=== PATIENT | female | born 1995 | race African-American/Black ===

== ENCOUNTER 2017-09-03 21:09 | Emergency (ER) | payer OTHER ==
[~2017-09-03] VITALS: Ht 170.2 cm; Wt 80.0 kg
[2017-09-03 21:10] VITALS: BP 122/59; PULSE 89; RESP 16; TEMP 98.6; O2SAT 99
[2017-09-03] MEDS ORDERED: MIRTA15 PO (21:49)
[2017-09-03] MEDS ORDERED: TRIAM.1%T TOPICAL (21:52)
[2017-09-03] MEDS ORDERED: NYST10007 TOPICAL (21:52)
[2017-09-03] MEDS ORDERED: CLAR10CA3 PO (21:52)
[2017-09-03] MEDS ORDERED: MINO50CA PO (21:52)
[2017-09-03] MEDS ORDERED: FLUO1TAB3 PO (21:52)
[2017-09-03] MEDS ORDERED: FAMO20TA2 PO (21:52)
--- NOTE | 2017-09-03 22:21 | PD ---
HPI Chief Complaint: Abdominal Pain Time Seen by Provider: 21:51 Travel History International Travel<30 days: No Contact w/Intl Traveler<30days: No Traveled to known affect area: No History of Present Illness HPI 22-year-old female presents to the emergency room for evaluation of pelvic pain for the past week. Patient states pain has been gradually worsening. It is exacerbated with urination. She had pain so severe earlier today that it caused her to double over in pain and vomit 1 time. She developed associated bilateral flank pain a few days ago. Denies any other episodes of nausea or vomiting. She denies vaginal discharge, urgency, or frequency. Denies any significant medical history. Patient denies concern for STD. No history of UTIs. PFSH Past Medical History Asthma: Yes Diminished Hearing: No Immunizations Current: Yes ?: Unknown LMP: 08/02/17 Past Surgical History Surgical History: No Previous Surgery Social History Alcohol Use: Yes (OCC) Tobacco Use: No Substance Use: Yes (OCC WEED) Allergies-Medications (Allergen,Severity, Reaction): Coded Allergies: No Known Allergies (Unverified , 09/03/17) Reported Meds & Prescriptions Reported Meds & Active Scripts Active Reported Minocycline (Minocycline HCl) 50 Mg Cap 50 Mg PO BID Triamcinolone Topical (Triamcinolone Acetonide) 0.1 % Oint 1 Applic TOPICAL TID Fluoxetine (Fluoxetine HCl) 20 Mg Tab 20 Mg PO DAILY Claritin (Loratadine) 10 Mg Cap 10 Mg PO DAILY Famotidine 20 Mg Tab 20 Mg PO BID Nystop Topical (Nystatin Topical) 100,000 Unit/Gm Powd 1 Applic TOPICAL Q12HR Mirtazapine 15 Mg Tab 15 Mg PO HS Review of Systems Except as stated in HPI: all other systems reviewed are Neg Physical Exam Narrative GENERAL: Well-nourished, well-developed female in no acute distress. Afebrile. Ambulatory. SKIN: Focused skin assessment warm/dry. HEAD: Normocephalic. EYES: No scleral icterus. No injection or drainage. NECK: Supple, trachea midline. No JVD or lymphadenopathy. CARDIOVASCULAR: Regular rate and rhythm without murmurs, gallops, or rubs. RESPIRATORY: Breath sounds equal bilaterally. No accessory muscle use. GASTROINTESTINAL: Abdomen soft, nondistended. No peritoneal signs. No rebound tenderness. Voluntary guarding. Tenderness to palpation of the mid pelvic region. Data Data Last Documented VS Vital Signs Date Time Temp Pulse Resp B/P (MAP) Pulse Ox O2 Delivery O2 Flow Rate FiO2 09/03/17 21:10 98.6 89 16 122/59 (80) 99 Room Air Orders Orders Urinalysis - C+S If Indicated (09/03/17 21:57) Ed Urine Pregnancytest Poc (09/03/17 21:57) Urine Culture (09/03/17 22:00) Labs Laboratory Tests Test 09/03/17 22:00 Urine Color YELLOW Urine Turbidity CLEAR Urine pH 6.5 Urine Specific [place] 1.029 Urine Protein 30 mg/dL Urine Glucose (UA) NEG mg/dL Urine Ketones NEG mg/dL Urine Occult Blood NEG Urine Nitrite NEG Urine Bilirubin NEG Urine Urobilinogen 2.0 MG/DL Urine Leukocyte Esterase TRACE Urine RBC 9 /hpf Urine WBC 27 /hpf Urine Squamous Epithelial Cells 1 /hpf Urine Transitional Epithelial Cells 2 /hpf Urine Amorphous Sediment RARE Urine Bacteria RARE /hpf Urine Mucus FEW /lpf Microscopic Urinalysis Comment CULTURE INDICATED MDM Medical Decision Making Medical Screen Exam Complete: Yes Emergency Medical Condition: Yes Medical Record Reviewed: Yes Differential Diagnosis Urinary tract infection, STD, PID Narrative Course 22-year-old female presents to the emergency room for evaluation of pelvic pain for the past week. Patient has developed bilateral flank pain for the past 3 days. Denies fever, chills, nausea, vomiting. Patient is resting currently in bed. Laughing, smiling, in no acute distress. She denies any vaginal discharge or concern for STD. Abdomen is soft, mild tenderness to palpation of the mid pelvic region. No peritoneal signs. No indication for emergent imaging at this time. Vital signs stable. History and physical exam are consistent with UTI. ED urine test is negative. Urinalysis shows evidence of urinary tract infection. Likely etiology of pain especially of induration of symptoms. Patient will be discharged with Keflex and told to follow up with PCP or return for worsening symptoms. Patient understands and agrees to plan. Diagnosis Primary Impression: Urinary tract infection Qualified Codes: N30.01 - Acute cystitis with hematuria Referrals: Primary Care Physician Additional Instructions: Rest and drink plenty of fluids. Take Keflex as directed, until gone. Take ibuprofen with food as directed, as needed for pain. Follow-up with a primary care physician. Return to the emergency room for worsening symptoms. Disposition: DISCHARGE HOME Condition: Stable Lidya Ceballos Sep 03, 2017 22:21
[2017-09-03 22:49] LABS: BACTERIA, URINE RARE /hpf; BLOOD, URINE NEG (NEG); COMMENT (UR) CULTURE INDICATED; CULTURE IF INDICATED CULTURE INDICATED; GLUCOSE,URINE NEG (NEG); KETONE, URINE NEG (NEG); MUCUS URINE FEW /lpf (OCC); NITRITE,URINE NEG (NEG); PH, URINE 6.5 (5.0-8.5); SQUAMOUS EPITHELIAL CELL URINE 1 /hpf (0-5); TRANSITIONAL EPI CELLS, URINE 2 /hpf; URINE COLOR YELLOW (YELLW/STRAW)
[2017-09-03] MEDS ORDERED: CEPH-460 PO (22:55)
== END 2017-09-03 23:41 | disposition home or self-care (01) ==
LOC: NEPC 21:09
DX: N30.01 Acute cystitis with hematuria (principal); B96.89 Other specified bacterial agents as the cause of diseases classified elsewhere
CPT/HCPCS: 81001; 84703; 87086; 99283